=== PATIENT | male | born 1960 | race Caucasian/White ===

== ENCOUNTER 2017-02-10 18:53 | Emergency (ER) | payer BC ==
--- NOTE | 2017-02-10 19:24 | EDM.PDOC ---
ED HPI GENERAL MEDICAL PROBLEM - General Stated Complaint: SWELING L HAND Time Seen by Provider: 02/10/17 19:05 Source of Information: Reports: Patient History Limitations: Reports: No Limitations - History of Present Illness INITIAL COMMENTS - FREE TEXT/NARRATIVE: History of present illness: [56-year-old male comes in status post mechanical fall with swelling to left hand and ecchymosis noted at base of thumb.] Review of systems: As per history of present illness and below otherwise all systems reviewed and negative. Past medical history: As per history of present illness and as reviewed below otherwise noncontributory. Surgical history: As per history of present illness and as reviewed below otherwise noncontributory. Social history: No reported history of drug or alcohol abuse. Family history: As per history of present illness and as reviewed below otherwise noncontributory. Physical exam: HEENT: Atraumatic, normocephalic, pupils reactive, negative for conjunctival pallor or scleral icterus, mucous membranes moist, throat clear, neck supple, nontender, trachea midline. Lungs: Clear to auscultation, breath sounds equal bilaterally, chest nontender. Heart: S1S2, regular, negative for clicks, rubs, or JVD. Abdomen: Soft, nondistended, nontender. Negative for masses or hepatosplenomegaly. Negative for costovertebral tenderness. Pelvis: Stable nontender. Genitourinary: Deferred. Rectal: Deferred. Extremities: Left hand with swelling dorsal aspect and at base of thumb with some amount of ecchymosis and erythema. Neurovascular unremarkable. Neuro: Awake, alert, oriented. Cranial nerves II through XII unremarkable. Cerebellum unremarkable. Motor and sensory unremarkable throughout. Exam nonfocal. Diagnostics: [X-ray of left hand] Therapeutics: [Thumb spica splint] Impression: [#1Comminuted nondisplaced fracture of the distal 1st phalanx. #2Possible nondisplaced fracture at the base of the 1st metacarpal. ] Plan: [Splint applied by nurse, follow-up with or so in hometown] Definitive disposition and diagnosis as appropriate pending reevaluation and review of above. left hand Pain Score (Numeric/FACES): 1 - Related Data Allergies Allergy/AdvReac Type Severity Reaction Status Date / Time No Known Allergies Allergy Verified 12/29/17 19:07 Home Meds: Home Meds FLUoxetine HCl [Prozac] 20 mg PO DAILY 02/10/17 [History] Past Medical History HEENT History: Reports: None Cardiovascular History: Reports: None Respiratory History: Reports: None Gastrointestinal History: Reports: None Genitourinary History: Reports: None Musculoskeletal History: Reports: None Neurological History: Reports: None Psychiatric History: Reports: Depression Endocrine/Metabolic History: Reports: None Dermatologic History: Reports: None - Infectious Disease History Infectious Disease History: Reports: Chicken Pox - Past Surgical History Male Surgical History: Reports: None Social & Family History - Family History Family Medical History: Noncontributory - Tobacco Use Smoking Status *Q: Never Smoker - Recreational Drug Use Recreational Drug Use: No ED ROS GENERAL - Review of Systems Review Of Systems: See Below (The history of present illness) ED EXAM, GENERAL - Physical Exam Exam: See Below (See history of present illness) Course - Vital Signs Last Recorded V/S: Last Vital Signs Temp 37.2 C 02/10/17 19:07 Pulse 71 02/10/17 19:07 Resp 18 02/10/17 19:07 BP 158/85 H 02/10/17 19:07 Pulse Ox 97 02/10/17 19:07 - Orders/Labs/Meds Orders: Active Orders 24 hr Category Date Time Status Hand 2V Lt [CR] Stat Exams 02/10/17 19:05 Taken Departure - Departure Time of Disposition: 20:19 Disposition: Home, Self-Care 01 Condition: Good Clinical Impression: Fracture of metacarpal bone, Fracture phalanges, hand - Discharge Information Instructions: Metacarpal Fracture, [id number], Cast or Splint Care, Easy-to- Read Referrals: PCP,Unknown [Primary Care Provider] - Additional Instructions: The following information is given to patients seen in the emergency department who are being discharged to home. This information is to outline your options for follow-up care. We provide all patients seen in our emergency department with a follow-up referral. The need for follow-up, as well as the timing and circumstances, are variable depending upon the specifics of your emergency department visit. If you don't have a primary care physician on staff, we will provide you with a referral. We always advise you to contact your personal physician following an emergency department visit to inform them of the circumstance of the visit and for follow-up with them and/or the need for any referrals to a consulting specialist. The emergency department will also refer you to a specialist when appropriate. This referral assures that you have the opportunity for follow-up care with a specialist. All of these measure are taken in an effort to provide you with optimal care, which includes your follow-up. Under all circumstances we always encourage you to contact your private physician who remains a resource for coordinating your care. When calling for follow-up care, please make the office aware that this follow-up is from your recent emergency room visit. If for any reason you are refused follow-up, please contact the [facility] Emergency Department at and asked to speak to the emergency department charge nurse. Take medication as directed Wear splint at all times as directed Follow-up with orthopedics in your hometown as discussed Return to ER as needed as discussed - My Orders Last 24 Hours: My Active Orders 02/10/17 19:05 Hand 2V Lt [CR] Stat - Assessment/Plan Last 24 Hours: My Active Orders 02/10/17 19:05 Hand 2V Lt [CR] Stat
--- NOTE | 2017-02-14 17:09 | CR ---
EXAM DATE: 02/10/17 PATIENT'S AGE: 56 Patient: ANDREIA TERRY Facility: [place], [place] Site . Site : [id number] Study: XRay Extremity Left hand [id number]/29/2017 7:32:25 PM Ordering Physician: Doctor Maynard Final Report: Indication: Injury. Fall. Pain and swelling especially thumb. Technique: Left hand three views. Comparison: None. Findings: There is a comminuted nondisplaced fracture of the distal 1st phalanx. There is also a subtle lucency involving the base of the 1st metacarpal. No additional acute osseous abnormality demonstrated. Scattered mild degenerative changes. Soft tissue swelling of the hand. No radiopaque foreign body evident. Impression: Comminuted nondisplaced fracture of the distal 1st phalanx. Possible nondisplaced fracture at the base of the 1st metacarpal. Continued attention to these findings on radiographic followup recommended. Dictated by Shilo Flowers MD @ 02/10/2017 7:51:50 PM Dictated by: Shilo Flowers MD @ 02/10/2017 19:52:24 (Electronic Signature) Report Signed by Proxy. GABI
== END 2017-02-10 20:40 | disposition home or self-care (01) ==
LOC: MW.ED 18:53
DX: S62.525A Nondisplaced fracture of distal phalanx of left thumb, initial encounter for closed fracture (principal); S60.012A Contusion of left thumb without damage to nail, initial encounter; F32.9 Major depressive disorder, single episode, unspecified; Z79.899 Other long term (current) drug therapy; W19.XXXA Unspecified fall, initial encounter
CPT/HCPCS: 73120-26-LT; 73120-LT; 99283